=== PATIENT | female | born 1970 | race Caucasian/White ===

== ENCOUNTER 2017-07-12 07:29 | Outpatient (CLI) | payer OTHER ==
[2017-07-12 08:17] LABS: eGFR (African) > 60; eGFR (Non-African) > 60
== END 2017-07-12 07:30 ==
LOC: LAB 07:29
PROVIDERS: ATTEND Family Medicine
DX: Z00.00 Encounter for general adult medical examination without abnormal findings (principal)
CPT/HCPCS: 36415; 80053; 80061

== ENCOUNTER 2018-07-12 07:54 | Outpatient (CLI) | payer OTHER ==
[2018-07-12 08:28] LABS: eGFR (Non-African) > 60
== END 2018-07-12 07:56 ==
LOC: LAB 07:54
PROVIDERS: ATTEND Family Medicine
DX: Z00.00 Encounter for general adult medical examination without abnormal findings (principal)
CPT/HCPCS: 36415; 80053; 80061

== ENCOUNTER 2019-07-11 07:44 | Outpatient (CLI) | payer OTHER ==
[2019-07-11 09:49] LABS: eGFR (Non-African) > 60
[2019-07-11 09:50] LABS: HDL 79 mg/dL (>40)
== END 2019-07-11 07:49 ==
LOC: LAB 07:44
PROVIDERS: ATTEND Family Medicine
DX: Z13.220 Encounter for screening for lipoid disorders (principal); Z13.29 Encounter for screening for other suspected endocrine disorder
CPT/HCPCS: 36415; 80053; 80061; 84443